=== PATIENT | female | born 1975 | race Caucasian/White ===

== ENCOUNTER 2016-04-05 06:21 | Emergency (ER) | payer BC, OTHER ==
[2016-04-05] MEDS ORDERED: ZIPRASIDONE MESYLATE INJ/PF 20 MG SDV IM ONE (06:32)
[2016-04-05 07:20] LABS: ABSOLUTE BASOPHILS # (AUTO) 0.1 10^3/uL (0.0-0.2); ABSOLUTE LYMPHOCYTES (AUTO) 2.4 10^3/uL (0.5-4.7); ABSOLUTE MONOCYTES (AUTO) 0.7 10^3/uL (0.1-1.4); ABSOLUTE NEUT (AUTO) 7.9 10^3/uL (1.7-8.2); BASOPHILS % (AUTO) 0.6 % (0-2); EOSINOPHILS % (AUTO) 0.2 % (0-6); HEMATOCRIT 43.2 % (36.0-47.0); HGB HCT DIFFERENCE 1.8; LYMPHOCYTES % (AUTO) 21.3 % (13-45); MEAN CORPUSCULAR HEMOGLOBIN 30.2 pg (27.0-33.4); MEAN CORPUSCULAR HGB CONC 34.8 g/dL (32.0-36.0); MEAN CORPUSCULAR VOLUME 87 fl (80-97); MONOCYTES % (AUTO) 6.6 % (3-13); RED BLOOD COUNT 4.97 10^6/uL (3.72-5.28); RED CELL DISTRIBUTION WIDTH 13.7 % (11.5-14.0); SEGMENTED NEUTROPHILS % (AUTO) 71.3 % (42-78); WHITE BLOOD COUNT 11.1 10^3/uL (4.0-10.5)
--- NOTE | 2016-04-05 07:28 | ER Document Report ---
ED General - General Chief Complaint: Psych Problem Stated Complaint: PSYCH PROBLEM - HPI Patient complains to provider of: psychiatric evaluation Notes: Patient coming in for psychiatric evaluation. Patient's currently on IVC paper stating that the patient "is having full conversations with self talking to things people that are not present is walking outside with inadequate clothing and no shoes and is handling the family pets roughly. Has had past suicide attempts". Upon patient's arrival patient very combative and uncooperative requiring abigail and security to pick the patient up off of the floor. Patient has very pressured speech patient seems to be manic. Patient was placed in 4. restraints for her safety as that she was throwing herself on the floor. Patient was given a dose of Geodon. Reevaluation patient now nonverbal will not answer any questions uncooperative during examination is pertaining to be asleep Otherwise patient nontoxic no critical etiology seen Past Medical History - Social History Smoking Status: Unknown if Ever Smoked Family History: None Review of Systems - Review of Systems Notes: Unable patient seems to be manic at this time uncooperative during examination Physical Exam - Vital signs Vitals: Temp Pulse Resp BP Pulse Ox 98.6 F 99 22 H 147/92 H 99 04/05/16 07:00 04/05/16 07:00 04/05/16 07:00 04/05/16 07:00 04/05/16 07:00 Interpretation: Normal - General General appearance: Other - Combative - HEENT Head: Normocephalic, Atraumatic Eyes: Normal Pupils: PERRL - Respiratory Respiratory status: No respiratory distress Chest status: Nontender Breath sounds: Normal Chest palpation: Normal - Cardiovascular Rhythm: Regular Heart sounds: Normal auscultation Murmur: No - Abdominal Inspection: Normal Distension: No distension Bowel sounds: Normal Tenderness: Nontender Organomegaly: No organomegaly - Back Back: Normal, Nontender - Extremities General upper extremity: Normal inspection, Nontender, Normal color, Normal ROM , Normal temperature General lower extremity: Normal inspection, Nontender, Normal color, Normal ROM , Normal temperature, Normal weight bearing. No: Belkys's sign - Neurological Neuro grossly intact: Yes Cognition: Normal Orientation: AAOx4 Sharron Coma Scale Eye Opening: Spontaneous Sharron Coma Scale Verbal: Oriented Sharron Coma Scale Motor: Obeys Commands [place] Coma Scale Total: 15 Speech: Normal Motor strength normal: LUE, RUE, LLE, RLE Sensory: Normal - Psychological Associated symptoms: Combative, Manic Notes: Pressured speech - Skin Skin Temperature: Warm Skin Moisture: Dry Skin Color: Normal Course - Re-evaluation Re-evalutation: 04/05/16 11:31 Patient does have low potassium and a low calcium level at this time. These will be replaced orally once patient is more calm and cooperative. Otherwise patient is medically cleared for psychiatric evaluation 04/05/16 11:32 - Vital Signs Vital signs: Temp Pulse Resp BP Pulse Ox 98.6 F 99 22 H 147/92 H 99 04/05/16 07:00 04/05/16 07:00 04/05/16 07:00 04/05/16 07:00 04/05/16 07:00 04/05/16 07:29 Patient coming in for psychiatric evaluation. Patient's currently on IVC paper stating that the patient "is having full conversations with self talking to things people that are not present is walking outside with inadequate clothing and no shoes and is handling the family pets roughly. Has had past suicide attempts". Upon patient's arrival patient Marcela very combative and uncooperative requiring long Foresman and security to pick the patient up off of the floor. Patient has very pressured speech patient seems to be manic. Patient was placed in 4. restraints for her safety as that she was throwing herself on the floor. Patient was given a dose of Geodon. Reevaluation patient now nonverbal will not answer any questions uncooperative during examination is pertaining to be asleep Otherwise patient nontoxic no critical etiology seen - Laboratory Result Diagrams: 04/05/16 07:05 04/05/16 07:05 Laboratory results interpreted by me: 04/05/16 04/05/16 04/05/16 07:05 07:05 08:15 WBC 11.1 H Potassium 3.1 L Carbon Dioxide 19 L Glucose 135 H Calcium 7.0 L* Ionized Calcium Bri 0.84 L AST 87 H ALT 55 H Salicylates < 1.0 L Acetaminophen < 10 L Discharge - Discharge Clinical Impression: Hypocalcemia, Hypokalemia, Kristin Condition: Good Disposition: PSYCH HOSP/UNIT
[2016-04-05 07:43] LABS: ALANINE AMINOTRANSFERASE 55 U/L (9-52); ALKALINE PHOSPHATASE 98 U/L (38-126); ANION GAP 18 (5-19); ASPARTATE AMINO TRANSFERASE 87 U/L (14-36); BILIRUBIN,TOTAL 0.9 mg/dL (0.2-1.3); BLOOD UREA NITROGEN 7 mg/dL (7-20); CARBON DIOXIDE 19 mmol/L (22-30); CHLORIDE 101 mmol/L (98-107); CREATININE RESULT 0.71 mg/dL (0.52-1.25); GLUCOSE 135 mg/dL (75-110); POTASSIUM 3.1 mmol/L (3.6-5.0); SODIUM 137.5 mmol/L (137-145)
[2016-04-05 07:46] LABS: ALCOHOL < 10 mg/dL (NONE DETECTED)
--- NOTE | 2016-04-05 10:18 | EKG REPORT ---
SEVERITY:- ABNORMAL ECG - SINUS RHYTHM NONSPECIFIC T ABNORMALITIES, INFERIOR LEADS BORDERLINE PROLONGED QT INTERVAL : Confirmed by: Konrad Urias 05-Apr-2016 10:17:17
[2016-04-05] MEDS ORDERED: LORAZEPAM INJ 2 MG/1 ML VIAL IM ONE ×2 (11:23→12:34)
[2016-04-05] MEDS ORDERED: HALOPERIDOL LACTATE INJ 5 MG/1 ML VIAL IM ONE ×2 (11:24→12:34)
[2016-04-05] MEDS: OLANZAPINE 5 MG TAB.RAPDIS PO SCH (11:30)
[2016-04-05 13:26] LABS: THYROID STIMULATING HORMONE 0.23 uIU/mL (0.47-4.68)
--- NOTE | 2016-04-05 19:06 | PSYCHOLOGICAL NOTE ---
Psych Note - Psych Note Psych Note: Patient coming in for psychiatric evaluation. Patient's currently on IVC paper stating that the patient "is having full conversations with self talking to things people that are not present is walking outside with inadequate clothing and no shoes and is handling the family pets roughly. Has had past suicide attempts". Patient states she's been up for days. She continues to disclose that her mom and her have a suicide pack; however she was unable to follow through. She continued disclose that her mother when in the garage and shot herself with a gun. That this happened on 1975; clinician notes this is the patient's birthdate. Patient asks clinician to kiss her on the cheek multiple times, when when it was explained that would be inappropriate patient states "oh I didn 't know is against the law I get it." Clinician notes that nurse was told by patient's daughter that the patient has been suffering from the loss of her mother. She stated the patient's mother committed suicide in July. While patient is alert she is not orientated to place time her circumstance. Mood is elevated with labile affect. It is noted the patient has been observed yelling, singing, spitting, attempted to bite the nurse's hand, cussing, and caring on full conversations by herself. Thought processes are currently impaired. Eye contact was well maintained. 298.9 (F29) Unspecified Schizophrenia Spectrum and Other Psychotic Disorder: In current acute setting (ED) there is not enough information to make a more accurate diagnosis. Impression\\plan: Patient is recommended for continued IVC she is considered a danger to herself and others from her impaired cognitive processes. Reevaluation will need to be conducted.
[2016-04-05] MEDS: BENZTROPINE MESYLATE 1 MG TABLET PO SCH (21:29)
[2016-04-06 08:52] LABS: APPEARANCE,URINE SLIGHTLY-CLOUDY; BILIRUBIN,URINE NEGATIVE (NEGATIVE); GLUCOSE, URINE NEGATIVE (NEGATIVE); KETONES,URINE 80 mg/dL (NEGATIVE); LEUKOCYTE ESTERASE,URINE NEGATIVE (NEGATIVE); NITRITE,URINE NEGATIVE (NEGATIVE); PROTEIN,URINE 100 mg/dL (NEGATIVE); URINE SPECIFIC GRAVITY 1.023
[2016-04-06] MEDS: OLANZAPINE 5 MG TAB.RAPDIS PO SCH ×2 (09:51→17:57)
[2016-04-06] MEDS: LEVOTHYROXINE SODIUM 0.1 MG TABLET PO SCH (09:51)
--- NOTE | 2016-04-06 12:39 | PSYCHOLOGICAL NOTE ---
Psych Note - Psych Note Psych Note: Conducted check in with patient who is a 40 year old female under IVC at [facility] after she presented yesterday morning agitated and disoriented. Patient today is alert and oriented to name and location; however, unable to provide any meaningful information in regards to this episode. Patient smiles and is euphoric in mood. She does talk about a suicide pacts she and her mother had, who allegedly committed suicide last week. Patient states they decided that who ever first, the one left would attempt to seek answers through [facility]. Patient reports she does not remember what happened yesterday morning, but reports, "I'm fine, [facility] has got me." Patient's significant other is bedside and she did provide verbal consent to speak with him. He states this holiness talk is not patient's baseline. Significant other states he lives with her, and has not seen her like this in the past. He does specify that he cannot watch her 20/10 due to his work schedule. Boyfriend clarifies that the patient has attempted suicide via overdose in the past, and was diagnosed with Bipolar Disorder while inpatient at [facility]. 296.80 (F31.9) Unspecified Bipolar and Related Disorder Patient's presenting symptoms are similar to that of a Bipolar Disorder and cause clinically significant distress in all domains of her life At this time and in this setting, there is not enough information to make a more specific diagnosis. Patient is recommended to remain under IVC for further evaluation and disposition. At this time, patient's poor insight and manic/euphoric state cause concerns for additional episodes. Patient is considered a danger to herself. I consulted with Dr. Rivera in regards to the care and management of this patient. ED MD is in agreement with disposition and recommendations.
[2016-04-06] MEDS: DIVALPROEX SODIUM 500 MG TAB.SR.24H PO SCH (17:57)
--- NOTE | 2016-04-06 22:36 | ER Document Report ---
Doctor's Note Notes: 04/06/16 22:34 Nurse asked me to reevaluate the patient because she is becoming agitated. I did go and speak with the patient. She says that she is upset because she was about sinus pressure. I informed her that were not allowed to lie her leave the building being that she is on involuntary commitment paperwork. Patient is understanding of this. I asked her if she felt that she something help calm her nerves. Did offer medication help with anxiety and agitation. Patient says that she will keep herself calm and she does not anything. Patient currently is common evaluation. If she starts to become agitated again then we will reconsider medicative therapy.
[2016-04-06] MEDS: BENZTROPINE MESYLATE 1 MG TABLET PO SCH (23:05)
[2016-04-07] MEDS: DIVALPROEX SODIUM 500 MG TAB.SR.24H PO SCH (09:07)
[2016-04-07] MEDS: OLANZAPINE 5 MG TAB.RAPDIS PO SCH (09:07)
[2016-04-07] MEDS: LEVOTHYROXINE SODIUM 0.1 MG TABLET PO SCH (09:07)
[2016-04-07] MEDS ORDERED: HALOPERIDOL LACTATE INJ 5 MG/1 ML VIAL IM ONE (09:17)
[2016-04-07] MEDS ORDERED: LORAZEPAM INJ 2 MG/1 ML VIAL IM ONE (09:17)
--- NOTE | 2016-04-07 09:20 | ER Document Report ---
Doctor's Note Notes: 04/07/16 09:18 Patient was evaluated today. Agitated strep by security as she was threatening to leave the ER. Patient will be given a dose of Ativan and Haldol. 04/07/16 09:19 Patient was reevaluated by our mental health team are recommending when necessary Haldol. This will be placed in order set. Otherwise patient's vital signs are within normal limits. Patient has no signs of toxicity sepsis or any other concerning etiology
[2016-04-07] MEDS ORDERED: HALOPERIDOL LACTATE INJ 5 MG/1 ML VIAL IM PRN (09:42)
--- NOTE | 2016-04-07 11:54 | EKG REPORT ---
SEVERITY:- ABNORMAL ECG - SINUS RHYTHM NONSPECIFIC T ABNORMALITIES, DIFFUSE LEADS BORDERLINE PROLONGED QT INTERVAL : Confirmed by: Konrad Urias 07-Apr-2016 11:54:02
[2016-04-07 16:05] VITALS: BP 135/93
--- NOTE | 2016-04-08 08:04 | PSYCHOLOGICAL NOTE ---
Psych Note - Psych Note Psych Note: Clinician conducted a check in with patient. Minor improvements are noted, patient is able to communicate however still actively in psychosis. Patient endorses auditory and visual hallucinations. She disclosed her mother and her had a suicide pact and that her mother follow through by shooting herself however she got scared and didn't. She contined to say that she hopes God forgives her. She stated the suicide pact was in an attempt to find out if [facility] or God existed. She states the only time she can stop hallucinations is when she rests so she can see God in her dreams. Patient still meets the criteria for IVC placement has been found at [facility] Transportation will occur today.
[2016-04-08 15:37] LABS: URINE BARBITURATES SCREEN NEGATIVE; URINE METHADONE SCREEN NEGATIVE; URINE PHENCYCLIDINE SCREEN NEGATIVE
== END 2016-04-07 16:23 ==
LOC: ER 06:21
DX: E83.51 Hypocalcemia (principal); E87.6 Hypokalemia; F30.9 Manic episode, unspecified; R45.1 Restlessness and agitation; R44.0 Auditory hallucinations
CPT/HCPCS: 93005 ×2; 99285; 96372; 36415; 84439; 80307 ×4; 83735; 84443; 84703; 85025; 80053; 81001; 82330; 93010 ×2; J3490 ×3; J1630 ×2; J2060 ×2; J3486

== ENCOUNTER 2016-11-03 08:51 | Emergency (ER) | payer SELFPAY ==
--- NOTE | 2016-11-03 09:45 | EKG REPORT ---
SEVERITY:- ABNORMAL ECG - SINUS RHYTHM LEFT ATRIAL ABNORMALITY BORDERLINE T WAVE ABNORMALITIES BORDERLINE PROLONGED QT INTERVAL : Confirmed by: Konrad Urias 03-Nov-2016 09:45:13
[2016-11-03] MEDS ORDERED: LORAZEPAM INJ 2 MG/1 ML VIAL IM ONE (09:48)
[2016-11-03] MEDS ORDERED: HALOPERIDOL LACTATE INJ 5 MG/1 ML VIAL IM ONE (09:48)
[2016-11-03 09:51] LABS: ABSOLUTE BASOPHILS # (AUTO) 0.1 10^3/uL (0.0-0.2); ABSOLUTE LYMPHOCYTES (AUTO) 1.8 10^3/uL (0.5-4.7); ABSOLUTE MONOCYTES (AUTO) 0.6 10^3/uL (0.1-1.4); ABSOLUTE NEUT (AUTO) 10.2 10^3/uL (1.7-8.2); BASOPHILS % (AUTO) 0.6 % (0-2); EOSINOPHILS % (AUTO) 0.3 % (0-6); HEMATOCRIT 48.3 % (36.0-47.0); HEMOGLOBIN 16.1 g/dL (12.0-15.5); LYMPHOCYTES % (AUTO) 14.4 % (13-45); MEAN CORPUSCULAR HEMOGLOBIN 30.1 pg (27.0-33.4); MEAN CORPUSCULAR HGB CONC 33.3 g/dL (32.0-36.0); MEAN CORPUSCULAR VOLUME 90 fl (80-97); MONOCYTES % (AUTO) 4.9 % (3-13); RED BLOOD COUNT 5.35 10^6/uL (3.72-5.28); RED CELL DISTRIBUTION WIDTH 13.9 % (11.5-14.0); SEGMENTED NEUTROPHILS % (AUTO) 79.8 % (42-78); WHITE BLOOD COUNT 12.8 10^3/uL (4.0-10.5)
[2016-11-03 10:10] LABS: ALANINE AMINOTRANSFERASE 31 U/L (9-52); ALBUMIN 5.3 g/dL (3.5-5.0); ALCOHOL < 10 mg/dL (NONE DETECTED); ALKALINE PHOSPHATASE 131 U/L (38-126); ASPARTATE AMINO TRANSFERASE 50 U/L (14-36); BILIRUBIN,DIRECT 0.6 mg/dL (0.0-0.4); BILIRUBIN,TOTAL 1.2 mg/dL (0.2-1.3); BLOOD UREA NITROGEN 7 mg/dL (7-20); CALCIUM 8.5 mg/dL (8.4-10.2); CHLORIDE 103 mmol/L (98-107); CREATININE RESULT 1.11 mg/dL (0.52-1.25); GLUCOSE 117 mg/dL (75-110); TOTAL PROTEIN 9.4 g/dL (6.3-8.2)
[2016-11-03 10:17] LABS: CARBON DIOXIDE 13 mmol/L (22-30); SODIUM 140.5 mmol/L (137-145)
[2016-11-03 10:22] LABS: ANION GAP 25 (5-19)
[2016-11-03 11:54] LABS: APPEARANCE,URINE CLEAR; BILIRUBIN,URINE NEGATIVE (NEGATIVE); GLUCOSE, URINE NEGATIVE (NEGATIVE); KETONES,URINE 80 mg/dL (NEGATIVE); LEUKOCYTE ESTERASE,URINE NEGATIVE (NEGATIVE); NITRITE,URINE NEGATIVE (NEGATIVE); PROTEIN,URINE >=500 mg/dL (NEGATIVE); UROBILINOGEN,URINE NEGATIVE mg/dL (<2.0)
[2016-11-03 12:03] LABS: URINE BARBITURATES SCREEN NEGATIVE; URINE METHADONE SCREEN NEGATIVE; URINE OPIATES LOW NEGATIVE; URINE PHENCYCLIDINE SCREEN NEGATIVE
--- NOTE | 2016-11-03 14:47 | ER Document Report ---
ED General - General Chief Complaint: Psych Problem Stated Complaint: PSYCH EVAL Time Seen by Provider: 11/03/16 09:09 - HPI Patient complains to provider of: Acute psychosis and niko Notes: Patient has been evaluated in the past for acute psychosis and niko. According to the patient's family patient 4 days ago started using cocaine and possibly the benzodiazepines patient is not taking her psychiatric medications in the last 4 days. Patient has been admitted multiple times for suicidal ideation suicide attempts and acute niko before patient upon her last visit here was transferred to inpatient psych. According to family members patient also has a history of elevated blood pressure has not been taking her blood pressure medication. Upon my evaluation patient is awake however not cooperative in any part of the HPI taking process benign answer questions. Family states patient has been very inappropriate with her behaviors saying nonsensical words patient try to undress herself in public recently. - Related Data Allergies/Adverse Reactions: miconazole [From Monistat 1 Combo Pack] Allergy (Verified 04/05/16 18:35) Past Medical History - General Information source: Patient, Friend, [facility] - Social History Smoking Status: Never Smoker Chew tobacco use (# tins/day): No Frequency of alcohol use: None Drug Abuse: Cocaine Family History: None - Past Medical History Cardiac Medical History: Reports: Hx Hypertension Psychiatric Medical History: Reports: Hx Bipolar Disorder Review of Systems - Review of Systems Constitutional: No symptoms reported EENT: No symptoms reported Cardiovascular: No symptoms reported Respiratory: No symptoms reported Gastrointestinal: No symptoms reported Genitourinary: No symptoms reported Female Genitourinary: No symptoms reported Musculoskeletal: No symptoms reported Skin: No symptoms reported Hematologic/Lymphatic: No symptoms reported Neurological/Psychological: Other - Acute niko -: Yes All other systems reviewed and negative Physical Exam - Vital signs Vitals: Temp Pulse Resp BP Pulse Ox 98.5 F 101 H 18 166/100 H 96 11/03/16 10:16 11/03/16 10:16 11/03/16 10:16 11/03/16 10:16 11/03/16 10:16 Interpretation: Normal - General General appearance: Appears well, Alert - HEENT Head: Normocephalic, Atraumatic Eyes: Normal Pupils: PERRL - Respiratory Respiratory status: No respiratory distress Chest status: Nontender Breath sounds: Normal Chest palpation: Normal - Cardiovascular Rhythm: Regular Heart sounds: Normal auscultation Murmur: No - Abdominal Inspection: Normal Distension: No distension Bowel sounds: Normal Tenderness: Nontender Organomegaly: No organomegaly - Back Back: Normal, Nontender - Extremities General upper extremity: Normal inspection, Nontender, Normal color, Normal ROM , Normal temperature General lower extremity: Normal inspection, Nontender, Normal color, Normal ROM , Normal temperature, Normal weight bearing. No: Belkys's sign - Neurological Neuro grossly intact: Yes Cognition: Normal Orientation: AAOx4 [place] Coma Scale Eye Opening: Spontaneous [place] Coma Scale Verbal: Oriented [place] Coma Scale Motor: Obeys Commands [place] Coma Scale Total: 15 Speech: Normal Motor strength normal: LUE, RUE, LLE, RLE Sensory: Normal - Psychological Associated symptoms: Agitated, Manic - Skin Skin Temperature: Warm Skin Moisture: Dry Skin Color: Normal Course - Re-evaluation Re-evalutation: 11/03/16 14:46 Lab work shows mild dehydration encouraged patient to drink oral fluids. Patient was given a dose of Haldol and Ativan to keep her calm. Patient otherwise medically cleared for psychiatric evaluation - Vital Signs Vital signs: Temp Pulse Resp BP Pulse Ox 98.5 F 101 H 18 166/100 H 96 11/03/16 10:16 11/03/16 10:16 11/03/16 10:16 11/03/16 10:16 11/03/16 10:16 - Laboratory Result Diagrams: 11/03/16 09:34 11/03/16 09:34 Laboratory results interpreted by me: 11/03/16 11/03/16 11/03/16 09:34 09:34 11:26 WBC 12.8 H RBC 5.35 H Hgb 16.1 H Hct 48.3 H Seg Neutrophils % 79.8 H Absolute Neutrophils 10.2 H Carbon Dioxide 13 L Anion Gap 25 H Est GFR (Non-Af Amer) 54 L Glucose 117 H Direct Bilirubin 0.6 H AST 50 H Alkaline Phosphatase 131 H Total Protein 9.4 H Albumin 5.3 H Urine Protein >=500 H Urine Ketones 80 H Urine Blood MODERATE H Salicylates < 1.0 L Acetaminophen < 10 L Discharge - Discharge Clinical Impression: Acute niko acute psychosis Condition: Fair Disposition: PSYCH HOSP/UNIT
--- NOTE | 2016-11-03 15:03 | ER Document Report ---
Addendum entered and electronically signed by AGUEDA BOLAND LPC 11/04/16 09: 23: ED Psych Disorder / Suicide - General Chief Complaint: Psych Problem Stated Complaint: PSYCH EVAL Time Seen by Provider: 11/03/16 09:09 - [facility] Notes: Conducted check in with patient who is a 41 year old female under IVC at [facility]. Patient initially presented in an acute manic state, also presumably under the influence of various illicit drugs. Patient today is A&O, observed ambulating without assistance, and communicating in linear thought processes. Patient states she was not sure what occurred prior to her arrival, but states she had discontinued her medications. Patient states she cannot recall what her medications were, but states her fiance would know. Patient states that she does not want to be on medications for Bipolar Disorder. Patient states she does take her Synthroid. Patient denies thoughts of wanting to harm herself or anyone else. Patient denies A/V H. Baljit Lr states: found out Thursday before this episode that sometime last week she did some cocaine. He states throughout that afternoon he obtained her phone and went through it, found messages, and discovered one of her friends had also given her some Xanax. He states since her discharge from [facility] 6 months ago, she had been following up with the clinic behind the hospital for continued care, but had stopped going. He states he talked with her about following up with her clinic and resuming her medications. Adeline states he understands that the patient is her own guardian and can chose wether or not she takes medications. Adeline states he is in agreement and has no concerns with her discharging. States a friend, Phyllis will present to transport the patient home. Patient is A&O. Mood is euthymic with smiling affect. Patient denies suicidal/ homicidal ideations, intent, plan, or means. Patient denies A/V H; delusions not noted. Thought processes were guarded. Conversational speech was WNL. Intellectual abilities were estimated within average range. Attention and focus were poor. Insight, judgment, and impulse control were poor. Unspecified Bipolar Disorder Polysubstance Abuse Patient is psychiatrically cleared for discharge. Patient is recommended for rescind IVC and discharge to follow up with her psychiatric provider. Patient denies wanting to harm herself or anyone else. Patient acknowledges that her substance abuse exasperated her symptoms. Fiance states he is in agreement with plan of care, and further agrees to provide addition support and follow up care. I consulted with Dr. Rivera in regards to the care and management of this patient. - Related Data Allergies/Adverse Reactions: miconazole [From Monistat 1 Combo Pack] Allergy (Verified 04/05/16 18:35) Home Medications: Current Home Medications Levothyroxine Sodium [Synthroid] 175 mcg PO QAM 11/04/16 [History] Discharge - Discharge Clinical Impression: Acute niko acute psychosis, Drug abuse Condition: Stable Disposition: HOME, SELF-CARE Additional Instructions: Bipolar Disorder Bipolar disorder is also called manic-depressive disorder. Depression alternates with brain hyperactivity called niko. Each phase lasts from several days to a few weeks. We don't know exactly what causes bipolar disorder , but it's treatable. During the "manic phase," you may feel elated and energetic. You may have racing thoughts, rapid speech, increased activity, and grandiose ideas. During this time, you may not realize how poor your judgement is. Inappropriate spending, drug abuse, excessive alcohol use, marriage problems, and irresponsible sexual behavior are common during the manic phase. During the "depressive phase," you might feel depressed, guilty, worthless , fatigued, and unable to concentrate. You might have thoughts of suicide. Good treatments are available for bipolar disorder. Staples is a classic drug for bipolar disorder, and is still often useful. If the manic phase is very mild, an antidepressant alone can be prescribed. If the manic phase is very severe, an antipsychotic medicine (such as Haldol) may be needed. The treatment must be matched to your symptoms, so it's important to work closely with your psychiatric care provider. Contact your physician, the hospital emergency center, crisis line, or your counsellor if you are losing control or having self-destructive thoughts. Cocaine Abuse Cocaine causes many dangerous medical problems. Problems can occur even with "usual" amounts. Cocaine affects judgement, creating a sense of invulnerability. Cocaine users often make bad decisions that seem "great" at the time. Most cocaine users eventually will be hurt by bad job performance, damaged personal relations, crime, and unsafe sexual practices. Toxic effects of cocaine can include seizures, hallucinations, delusions, high blood pressure, heart damage, or sudden . There's always the risk of a "bad batch." But heart attacks, brain hemorrhages, or cardiac arrest can occur unpredictably even with "normal" use. Injection of cocaine is risky for abscesses, endocarditis (heart infection) , pneumonia, and AIDS. Withdrawal from cocaine often causes anxiety and drug cravings. Some users become paranoid and psychotic. Many treatment programs are available, but you must make the decision to quit. Medication can be prescribed to control the symptoms of cocaine toxicity (beta blockers or benzodiazepines). Withdrawal symptoms may require tranquilizers. Please follow up with your provider and engage in outpatient services. Please stop using drugs. Please return if your symptoms worsen. Referrals: [facility] [Provider Group] - 11/04/16 (Please walk in today and request assessment for services) Original Note: ED Psych Disorder / Suicide - General Information source: Patient, Friend, [facility] Records - HPI Patient complains to provider of: Bizarre behavior, Other - manic Onset: Other Onset was: Cannot confirm Suicide Risk Factors: Bipolar, Frightened friends/family, Lack of social support Situational problems related to: Parent - mother last year Normal mood: No - manic/labile Associated symptoms: Anxious, Irritable, Labile, Manic, Restlessness, Tearful Similar symptoms previously: Yes <AGUEDA BOLAND - Last Filed: 11/04/16 09:01> <VIVIEN LAMA - Last Filed: 11/04/16 09:41> - General Chief Complaint: Psych Problem Stated Complaint: PSYCH EVAL Time Seen by Provider: 11/03/16 09:09 - HPI Notes: Patient is a 41 year old female who presents via EMS due to manic behaviors. Patient was administered IM medications upon arrival to assist her in remaining calm for her safety. Patient is sleeping at this time. Patient is known to this clinician and this Department for prior episodes of similar etiology. Per patient records, patient does have a history of Bipolar Disorder. Additionally , patient's toxicology is positive for cocaine, marijuane, and beznzos. Will track. (AGUEDA BOLAND) - Related Data Allergies/Adverse Reactions: miconazole [From Monistat 1 Combo Pack] Allergy (Verified 04/05/16 18:35) Past Medical History - Social History Smoking Status: Never Smoker Chew tobacco use (# tins/day): No Frequency of alcohol use: None Drug Abuse: Cocaine Family History: None - Past Medical History Cardiac Medical History: Reports: Hx Hypertension Psychiatric Medical History: Reports: Hx Bipolar Disorder <AGUEDA BOLAND - Last Filed: 11/04/16 09:01> Course - Laboratory Result Diagrams: 11/03/16 09:34 11/03/16 09:34 <AGUEDA BOLAND - Last Filed: 11/04/16 09:01> - Laboratory Result Diagrams: 11/03/16 09:34 11/03/16 09:34 <VIVIEN LAMA - Last Filed: 11/04/16 09:41> - Vital Signs Vital signs: Temp Pulse Resp BP Pulse Ox 98.2 F 102 H 20 166/101 H 96 11/04/16 02:00 11/04/16 02:00 11/04/16 02:00 11/04/16 02:00 11/04/16 02:00 - Laboratory Laboratory results interpreted by me: 11/03/16 11/03/16 11/03/16 09:34 09:34 11:26 WBC 12.8 H RBC 5.35 H Hgb 16.1 H Hct 48.3 H Seg Neutrophils % 79.8 H Absolute Neutrophils 10.2 H Carbon Dioxide 13 L Anion Gap 25 H Est GFR (Non-Af Amer) 54 L Glucose 117 H Direct Bilirubin 0.6 H AST 50 H Alkaline Phosphatase 131 H Total Protein 9.4 H Albumin 5.3 H Urine Protein >=500 H Urine Ketones 80 H Urine Blood MODERATE H Salicylates < 1.0 L Acetaminophen < 10 L Discharge <AGUEDA BOLAND - Last Filed: 11/04/16 09:01> <VIVIEN LAMA - Last Filed: 11/04/16 09:41> - Discharge Clinical Impression: Acute niko acute psychosis, Drug abuse Condition: Stable Disposition: HOME, SELF-CARE Additional Instructions: Bipolar Disorder Bipolar disorder is also called manic-depressive disorder. Depression alternates with brain hyperactivity called niko. Each phase lasts from several days to a few weeks. We don't know exactly what causes bipolar disorder , but it's treatable. During the "manic phase," you may feel elated and energetic. You may have racing thoughts, rapid speech, increased activity, and grandiose ideas. During this time, you may not realize how poor your judgement is. Inappropriate spending, drug abuse, excessive alcohol use, marriage problems, and irresponsible sexual behavior are common during the manic phase. During the "depressive phase," you might feel depressed, guilty, worthless , fatigued, and unable to concentrate. You might have thoughts of suicide. Good treatments are available for bipolar disorder. Staples is a classic drug for bipolar disorder, and is still often useful. If the manic phase is very mild, an antidepressant alone can be prescribed. If the manic phase is very severe, an antipsychotic medicine (such as Haldol) may be needed. The treatment must be matched to your symptoms, so it's important to work closely with your psychiatric care provider. Contact your physician, the hospital emergency center, crisis line, or your counsellor if you are losing control or having self-destructive thoughts. Cocaine Abuse Cocaine causes many dangerous medical problems. Problems can occur even with "usual" amounts. Cocaine affects judgement, creating a sense of invulnerability. Cocaine users often make bad decisions that seem "great" at the time. Most cocaine users eventually will be hurt by bad job performance, damaged personal relations, crime, and unsafe sexual practices. Toxic effects of cocaine can include seizures, hallucinations, delusions, high blood pressure, heart damage, or sudden . There's always the risk of a "bad batch." But heart attacks, brain hemorrhages, or cardiac arrest can occur unpredictably even with "normal" use. Injection of cocaine is risky for abscesses, endocarditis (heart infection) , pneumonia, and AIDS. Withdrawal from cocaine often causes anxiety and drug cravings. Some users become paranoid and psychotic. Many treatment programs are available, but you must make the decision to quit. Medication can be prescribed to control the symptoms of cocaine toxicity (beta blockers or benzodiazepines). Withdrawal symptoms may require tranquilizers. Please follow up with your provider and engage in outpatient services. Please stop using drugs. Please return if your symptoms worsen. Referrals: [facility] [Provider Group] - 11/04/16 (Please walk in today and request assessment for services) Discharge <AGUEDA BOLAND - Last Filed: 11/04/16 09:01> <VIVIEN LAMA - Last Filed: 11/04/16 09:41> - Discharge Clinical Impression: Acute niko acute psychosis, Drug abuse Condition: Stable Disposition: HOME, SELF-CARE Additional Instructions: Bipolar Disorder Bipolar disorder is also called manic-depressive disorder. Depression alternates with brain hyperactivity called niko. Each phase lasts from several days to a few weeks. We don't know exactly what causes bipolar disorder , but it's treatable. During the "manic phase," you may feel elated and energetic. You may have racing thoughts, rapid speech, increased activity, and grandiose ideas. During this time, you may not realize how poor your judgement is. Inappropriate spending, drug abuse, excessive alcohol use, marriage problems, and irresponsible sexual behavior are common during the manic phase. During the "depressive phase," you might feel depressed, guilty, worthless , fatigued, and unable to concentrate. You might have thoughts of suicide. Good treatments are available for bipolar disorder. Staples is a classic drug for bipolar disorder, and is still often useful. If the manic phase is very mild, an antidepressant alone can be prescribed. If the manic phase is very severe, an antipsychotic medicine (such as Haldol) may be needed. The treatment must be matched to your symptoms, so it's important to work closely with your psychiatric care provider. Contact your physician, the hospital emergency center, crisis line, or your counsellor if you are losing control or having self-destructive thoughts. Cocaine Abuse Cocaine causes many dangerous medical problems. Problems can occur even with "usual" amounts. Cocaine affects judgement, creating a sense of invulnerability. Cocaine users often make bad decisions that seem "great" at the time. Most cocaine users eventually will be hurt by bad job performance, damaged personal relations, crime, and unsafe sexual practices. Toxic effects of cocaine can include seizures, hallucinations, delusions, high blood pressure, heart damage, or sudden . There's always the risk of a "bad batch." But heart attacks, brain hemorrhages, or cardiac arrest can occur unpredictably even with "normal" use. Injection of cocaine is risky for abscesses, endocarditis (heart infection) , pneumonia, and AIDS. Withdrawal from cocaine often causes anxiety and drug cravings. Some users become paranoid and psychotic. Many treatment programs are available, but you must make the decision to quit. Medication can be prescribed to control the symptoms of cocaine toxicity (beta blockers or benzodiazepines). Withdrawal symptoms may require tranquilizers. Please follow up with your provider and engage in outpatient services. Please stop using drugs. Please return if your symptoms worsen. Referrals: [facility] [Provider Group] - 11/04/16 (Please walk in today and request assessment for services)
[2016-11-04] MEDS ORDERED: HALOPERIDOL LACTATE INJ 5 MG/1 ML VIAL IM PRN (07:42)
[2016-11-04] MEDS ORDERED: BENZTROPINE MESYLATE INJ 2 MG/2 ML AMPULE IM SCH (07:45)
[2016-11-04 09:55] VITALS: BP 155/119
== END 2016-11-04 09:52 | disposition home or self-care (01) ==
LOC: ER 08:51
DX: F23 Brief psychotic disorder (principal); F30.9 Manic episode, unspecified; F19.10 Other psychoactive substance abuse, uncomplicated; Z79.899 Other long term (current) drug therapy
CPT/HCPCS: 93005; 99284; 96372; 36415; 80307 ×4; 85025; 80053; 81001; 93010; J1630; J2060

== ENCOUNTER → 2018-02-05 | Outpatient (CLI) | payer OTHER ==
[2018-02-05 11:32] LABS: ABSOLUTE BASOPHILS # (AUTO) 0.1 10^3/uL (0.0-0.2); ABSOLUTE EOSINOPHILS # (AUTO) 0.1 10^3/uL (0.0-0.6); ABSOLUTE LYMPHOCYTES (AUTO) 2.4 10^3/uL (0.5-4.7); ABSOLUTE MONOCYTES (AUTO) 0.3 10^3/uL (0.1-1.4); ABSOLUTE NEUT (AUTO) 6.7 10^3/uL (1.7-8.2); BASOPHILS % (AUTO) 0.9 % (0-2); HEMOGLOBIN 15.2 g/dL (12.0-15.5); MEAN CORPUSCULAR HEMOGLOBIN 31.3 pg (27.0-33.4); MEAN CORPUSCULAR HGB CONC 35.2 g/dL (32.0-36.0); MEAN CORPUSCULAR VOLUME 89 fl (80-97); MONOCYTES % (AUTO) 3.4 % (3-13); PLATELET COUNT 342 10^3/uL (150-450); RED BLOOD COUNT 4.84 10^6/uL (3.72-5.28); RED CELL DISTRIBUTION WIDTH 13.9 % (11.5-14.0); SEGMENTED NEUTROPHILS % (AUTO) 69.7 % (42-78); TOTAL CELLS COUNTED % (AUTO) 100 %; WHITE BLOOD COUNT 9.6 10^3/uL (4.0-10.5)
[2018-02-05 11:38] LABS: APPEARANCE,URINE CLOUDY; BILIRUBIN,URINE NEGATIVE (NEGATIVE); COLOR,URINE YELLOW; GLUCOSE, URINE NEGATIVE (NEGATIVE); KETONES,URINE TRACE mg/dL (NEGATIVE); LEUKOCYTE ESTERASE,URINE TRACE (NEGATIVE); NITRITE,URINE NEGATIVE (NEGATIVE); PROTEIN,URINE 30 mg/dL (NEGATIVE); URINE SPECIFIC GRAVITY 1.018; UROBILINOGEN,URINE NEGATIVE mg/dL (<2.0)
[2018-02-05 11:49] LABS: ALANINE AMINOTRANSFERASE 37 U/L (9-52); ALBUMIN 4.6 g/dL (3.5-5.0); ALKALINE PHOSPHATASE 116 U/L (38-126); ANION GAP 17 (5-19); ASPARTATE AMINO TRANSFERASE 52 U/L (14-36); BILIRUBIN,DIRECT 0.4 mg/dL (0.0-0.4); BILIRUBIN,TOTAL 0.7 mg/dL (0.2-1.3); BLOOD UREA NITROGEN 18 mg/dL (7-20); CARBON DIOXIDE 29 mmol/L (22-30); CHLORIDE 96 mmol/L (98-107); CHOLESTEROL 227.47 mg/dL (0-200); GLUCOSE 119 mg/dL (75-110); POTASSIUM 4.4 mmol/L (3.6-5.0); SODIUM 142.1 mmol/L (137-145); TOTAL PROTEIN 7.8 g/dL (6.3-8.2); TRIGLYCERIDES 366 mg/dL (<150)
[2018-02-05 12:08] LABS: DIRECT LDL 161 mg/dL (<100); VLDL CHOLESTEROL 73.2 mg/dL (10-31)
[2018-02-05 12:33] LABS: FREE T4 (FREE THYROXINE) 2.28 ng/dL (0.78-2.19); THYROID STIMULATING HORMONE 0.07 uIU/mL (0.47-4.68)
[2018-02-05 13:04] LABS: CALCIUM 6.9 mg/dL (8.4-10.2)
[2018-02-06 12:37] LABS: CREATININE URINE 188.4 mg/dL (Not Estab.); MICROALBUMIN URINE 71.4 ug/mL (Not Estab.)
== END ==
LOC: OD 10:33
PROVIDERS: ATTEND Internal Medicine
DX: E11.9 Type 2 diabetes mellitus without complications (principal)
CPT/HCPCS: 36415; 80053; 80061; 81001; 82043; 82570; 83036; 84439; 84443; 84550; 85025

== ENCOUNTER → 2018-03-24 | Outpatient (CLI) | payer OTHER ==
--- NOTE | 2018-03-31 09:18 | WOMENS IMAGING REPORT ---
EXAM DESCRIPTION: MELANIE MAYORGA 3D BILAT SCREEN COMPLETED DATE/TIME: 03/24/2018 8:36 am REASON FOR STUDY: ROUTINE BILATERAL SCREENING;Z12.31 Z12.31 ENCNTR SCREEN MAMMOGRAM FOR MALIGNANT N EOPLASM OF TEA COMPARISON: None. TECHNIQUE: Standard craniocaudal and mediolateral oblique views of each breast recorded using digita l acquisition and breast tomosynthesis. LIMITATIONS: None. FINDINGS: Findings present which are benign by mammographic criteria. No suspicious masses, calcifi cations or architectural distortion. Pertinent benign findings: Bilateral cysts. Read with the assistance of CAD. .[facility] - R2 Cenova Version 1.3 .[facility] Imaging - R2 Cenova Version 1.3 .[facility] - R2 Cenova Version 2.4 .[facility] - R2 Cenova Version 2.4 .[facility] - R2 Oracle Architect Version 9.2 Benign mammographic findings may include one or more of the following: Smooth masses, popcorn/rim/co arse calcifications, asymmetries, post-procedure changes, and lesions with long-standing stability. IMPRESSION: BENIGN MAMMOGRAPHIC FINDINGS. BIRADS 2 BREAST DENSITY: b. There are scattered areas of fibroglandular density. BIRAD: 2 BENIGN FINDING(S) RECOMMENDATION: RECOMMENDATION: ROUTINE SCREENING COMMENT: The patient has been notified of the results by letter per SA requirements. Additional no tification policies are in place for contacting patient with suspicious or incomplete findings. Quality ID #[id number]: The [employer] recommends an annual screening mammogram for women aged 40 years or over. This facility utilizes a reminder system to ensure that all patients receive reminder letters, and/or direct phone calls for appointments. This includes reminders for routine scr eening mammograms, diagnostic mammograms, or other Breast Imaging Interventions when appropriate. Th is patient will be placed in the appropriate reminder system. The [employer] (ACR) has developed recommendations for screening MRI of the breast s in certain patient populations, to be used in conjunction with mammography. Breast MRI surveillanc e may be appropriate for women with more than 20% lifetime risk of developing breast cancer as deter mined by genetic testing, significant family history of the disease, or history of mantle radiation f or Hodgkins Disease. ACR Practice Guidelines 2008. DBT Technology DBT is a type of tomographic mammography. With conventional mammography, overlapping breast tissue ma y make lesions difficult to detect, even with good compression. DBT uses an x-ray tube that rotates a round the breast, taking images at different angles. These images are then combined to create thin sl ices of the breast that the radiologist can view as a 3D reconstruction. The [employer] unit can perform full-field digital mammograms (2D imaging); or DBT (3D imaging); or both, in a combination mode that quickly performs both the mammogram and the tomosynthesis scan while the breast is still compressed. PQRS 6045F: Fluoroscopic imaging is not utilized for breast tomosynthesis. TECHNICAL DOCUMENTATION: FINDING NUMBER: (1) ASSESSMENT: (1) JOB ID: [id number] 4 [employer]- All Rights Reserved Reading location - IP/workstation name: [email or web address]
== END ==
LOC: WI 08:10
PROVIDERS: ATTEND Obstetrics & Gynecology Gynecology
DX: Z12.31 Encounter for screening mammogram for malignant neoplasm of breast (principal)
CPT/HCPCS: 77063

== ENCOUNTER → 2018-06-04 | Outpatient (CLI) | payer OTHER | LOC: OD 08:06 | PROVIDERS: ATTEND Internal Medicine | DX: E83.51 Hypocalcemia (principal) | CPT/HCPCS: 36415; 83970 ==